=== PATIENT | female | born 1955 | race African-American/Black ===

== ENCOUNTER 2019-02-15 17:47 | Emergency (ER) | payer BC ==
[2019-02-15 18:56] LABS: URINE BLOOD (Dip) POC Negative (NEGATIVE); URINE GLUCOSE (Dip) POC Negative (NEGATIVE); URINE KETONES (Dip) POC Negative (NEGATIVE); URINE LEUKOCYTE EST (Dip) POC Negative (NEGATIVE); URINE NITRITE (Dip) POC Negative (NEGATIVE); URINE TOTAL PROTEIN POC Negative (NEGATIVE)
[2019-02-15] MEDS: KETOROLAC 30 MG INJ IM (19:16)
== END 2019-02-15 20:25 | disposition home or self-care (01) ==
LOC: FTE 17:47
DX: S20.211A Contusion of right front wall of thorax, initial encounter (principal); J45.909 Unspecified asthma, uncomplicated; I10 Essential (primary) hypertension; W01.190A Fall on same level from slipping, tripping and stumbling with subsequent striking against furniture, initial encounter; Y92.9 Unspecified place or not applicable
CPT/HCPCS: 71046; 71100; 81003; 96372; 99284-25